=== PATIENT | female | born 1990 | race American Indian/Alaskan Native ===

== ENCOUNTER 2017-01-19 17:01 | Emergency (ER) | payer OTHER ==
[2017-01-19] MEDS ORDERED: FLEXERIL PO ONE (19:44)
[2017-01-19] MEDS ORDERED: MOTRIN PO ONE (19:44)
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
[2017-01-19 21:49] VITALS: BP 114/72
== END 2017-01-19 21:49 | disposition home or self-care (01) ==
LOC: ED 17:01
DX: S60.512A Abrasion of left hand, initial encounter (principal); M79.1 Myalgia; F17.200 Nicotine dependence, unspecified, uncomplicated; V89.2XXA Person injured in unspecified motor-vehicle accident, traffic, initial encounter; Y93.89 Activity, other specified; Y99.9 Unspecified external cause status; Y92.410 Unspecified street and highway as the place of occurrence of the external cause
CPT/HCPCS: 81025